=== PATIENT | male | born 1990 | race Caucasian/White ===

== ENCOUNTER 2018-10-31 00:22 | Emergency (ER) | payer SELFPAY ==
[~2018-10-31] VITALS: Ht 167.6 cm; Wt 65.8 kg
--- NOTE | 2018-10-31 00:40 | NUR ---
Patient walked into ER c/o SI for several days. Patient states plan is to overdose on pills. Provided safety measures and comfort measures
[2018-10-31 00:59] LABS: BASOPHILS # (AUTO) 0.1 K/uL (0.0-8.0); BASOPHILS % (AUTO) 0.8 % (0.0-2.0); EOSINOPHILS % (AUTO) 0.4 % (0.0-7.0); HEMATOCRIT 37.8 % (36.7-47.1); HEMOGLOBIN 12.8 g/dL (12.5-16.3); LYMPHOCYTES # (AUTO) 1.7 K/uL (20.0-40.0); LYMPHOCYTES % (AUTO) 13.7 % (20.5-51.5); MEAN CORPUSCULAR HEMOGLOBIN 30.1 uug (23.8-33.4); MEAN CORPUSCULAR HGB CONC 34 g/dL (32.5-36.3); MONOCYTES # (AUTO) 0.8 K/uL (2.0-10.0); MONOCYTES % (AUTO) 6.8 % (0.0-11.0); NEUTROPHILS # (AUTO) 9.6 K/uL (1.8-8.9); NEUTROPHILS % (AUTO) 78.3 % (38.5-71.5); PLATELET COUNT (AUTO) 285 K/uL (152-348); RED BLOOD CELL COUNT(AUTO) 4.24 MIL/uL (4.06-5.63); WHITE BLOOD COUNT (AUTO) 12.3 K/uL (3.6-10.2)
[2018-10-31 01:02] LABS: *BILIRUBIN,URIN NEGATIVE (NEGATIVE); *BLOOD, URINE NEGATIVE (NEGATIVE); *CLARITY,URINE CLEAR (CLEAR); *COLOR,URINE YELLOW (YELLOW); *KETONES,URINE TRACE (NEGATIVE); *UROBILINOGEN,URINE 0.2 E.U./dl (NORMAL); LEUKOCYTE ESTERASE ,URINE NEGATIVE (NEGATIVE); NITRITE, URINE NEGATIVE (NEGATIVE); UGLUCOSE NEGATIVE (NEGATIVE)
[2018-10-31 01:10] LABS: CARBON DIOXIDE 23 mmol/L (21-32); CHLORIDE 104 mmol/L (98-107); CREATININE 1.1 mg/dL (0.6-1.3); GLUCOSE 104 mg/dL (74-106); POTASSIUM 3.8 mmol/L (3.5-5.1); UREA NITROGEN, BLOOD 14 mg/dL (7-18)
--- NOTE | 2018-10-31 01:14 | NUR ---
Patient search by hospital's secruity per protocol
[2018-10-31 01:16] LABS: ALANINE AMINOTRANSFERASE 89 U/L (16-63); ALKALINE PHOSPHATASE 70 U/L (50-136); ASPARTATE AMINOTRANSFERASE 64 U/L (15-37); BILIRUBIN,DIRECT 0.1 mg/dL (0.0-0.2); BILIRUBIN,TOTAL 0.3 mg/dL (0.2-1.0); TOTAL PROTEIN, SERUM 8.2 g/dL (6.4-8.2)
[2018-10-31 01:17] LABS: ACETAMINOPHEN < 10.0 ug/mL (10-30)
[2018-10-31 01:21] LABS: ETHANOL 225 MG/DL (0-0)
[2018-10-31 01:58] LABS: *AMPHETAMINE, URINE NEGATIVE (NEGATIVE); *BARBITURATE, URINE NEGATIVE (NEGATIVE); *CANNABINOID, URINE POSITIVE (NEGATIVE); *COCCAINE, URINE NEGATIVE (NEGATIVE); *OPIATE, URINE NEGATIVE (NEGATIVE); *PHENCYCLIDINE SCREEN,URINE NEGATIVE (NEGATIVE)
--- NOTE | 2018-10-31 02:08 | NUR ---
Provided patient with meal and PO fluids
--- NOTE | 2018-10-31 04:35 | NUR ---
Patient in room sleeping on gurny with no distress noted. Hospital secruity doing 1:1 observation.
--- NOTE | 2018-10-31 06:50 | NUR ---
Medically cleared by DR Gonzalez
--- NOTE | 2018-10-31 07:04 | NUR ---
Elier MORRELLW will eval patient.
--- NOTE | 2018-10-31 07:21 | NUR ---
Patient is awake and alert. He ambulated to bathroom with steady gait. Security at bedside for observation/safety
--- NOTE | 2018-10-31 07:24 | NUR ---
Patient states he "want to leave" and "I didnt mean that i would hurt myself". States he "feels safe now" and "doesnt want to talk to any therapist or person". Dr Gonzalez notified. Dr Gonzalez also spoke to patient.
--- NOTE | 2018-10-31 07:32 | NUR ---
Patient also refused Librium and all medications from [facility]. DC and follow up instructions given and explained to patient who states he understands all instructions. States he will arrange all resources and transportation and does not need help from us.
== END 2018-10-31 07:38 | disposition home or self-care (01) ==
LOC: ER 00:28
DX: F32.9 Major depressive disorder, single episode, unspecified (principal); F10.129 Alcohol abuse with intoxication, unspecified; Z88.0 Allergy status to penicillin; Z88.1 Allergy status to other antibiotic agents; Z59.0 Homelessness; Y90.7 Blood alcohol level of 200-239 mg/100 ml
CPT/HCPCS: 36415; 80048; 80076; 80307; 81001; 85025; 99284; G0480 ×3; G0481; A4663